=== PATIENT | female | born 1955 | race Caucasian/White ===

== ENCOUNTER → 2017-03-03 | Outpatient (CLI) | payer OTHER ==
--- NOTE | ~2017-03-03 | MY11 ---
[facility] A Service of [facility] RADIOLOGY TEXT RESULTS PATIENT: LAST WOODS LOCATION: [facility] : 59 UNIT #: [id number] AGE: [address]: Moy Suero MD SEX: F ORDER DR: [id number] [place] [id number] O MR#: [id number] Acc #: [id number] NAME: LAST WOODS : 1955 SEX: F STUDY DATE/TIME: 03/03/2017 9:08 UNIT: [facility] ROOM: STUDY DESCRIPTION: MY Mammogram Screening Dig Darius Attending Physician: Moy Suero M.D. Referring Physician: Moy Suero M.D. Ordering Physician: Moy Suero M.D. Primary Care Physician: Moy Suero M.D. MEDICAL IMAGING REPORT This report is preliminary unless electronic signature is present. EXAM Digital screening mammogram, 03/03/2017, [facility]. HISTORY 61-year-old woman no risk elevation. Annual screen. COMPARISON Mammograms date to 11/08/2006 with most recent 11/05/2013. FINDINGS Digital imaging of each breast was completed utilizing a two-view examination of each breast in craniocaudal and mediolateral-oblique projections. Review and interpretation of digital mammograms include a second review in conjunction with FDA-approved CAD device. There is a normal parenchymal presentation bilaterally consistent with the patient's age. There are no breast masses imaged and no parenchymal asymmetry is visualized. There are no suspicious microcalcifications and I see no focal architectural disturbance. IMPRESSION Negative screening digital mammogram. One-year followup recommended. Patients over the age of 40 are entered into a reminder system with target due date for the next mammogram. A result letter will also be sent to the patient. BIRADS: 1 Negative Dictated by... Ar Scott M.D. [facility] A Service of [facility] RADIOLOGY TEXT RESULTS PATIENT: LAST WOODS LOCATION: [facility] : 59 UNIT #: [id number] AGE: [address]: Moy Suero MD SEX: F ORDER DR: THIS IS AN ELECTRONICALLY VERIFIED REPORT Ar Scott M.D. at 03/03/2017 12:09 PM Karissa TD: 03/03/2017 11:28 JOB #: [id number] MEDICAL IMAGING REPORT Page 1 of 1
== END | disposition home or self-care (01) ==
LOC: SMAM 08:24
DX: Z12.31 Encounter for screening mammogram for malignant neoplasm of breast (principal)
CPT/HCPCS: G0202